=== PATIENT | female | born 1960 | race Caucasian/White ===

== ENCOUNTER 2021-12-11 14:28 | Emergency (ER) | payer BC ==
[2021-12-11] MEDS ORDERED: Ibuprofen 400 MG Tab PO ONE (15:12)
[2021-12-11] MEDS ORDERED: Propofol 200 MG/20 ML SDV IVPUSH ONE (16:05)
[2021-12-11] MEDS ORDERED: Metoclopramide 10 MG/2 ML SDV IVPUSH ONE (16:06)
[2021-12-11] MEDS ORDERED: fentaNYL 100 MCG/2 ML SDV IVPUSH ONE (16:06)
[2021-12-11 18:49] VITALS: BP 114/63; PULSE 82
== END 2021-12-11 17:15 | disposition home or self-care (01) ==
LOC: JD.ED 14:28
DX: S82.852A Displaced trimalleolar fracture of left lower leg, initial encounter for closed fracture (principal); S52.572A Other intraarticular fracture of lower end of left radius, initial encounter for closed fracture; S52.612A Displaced fracture of left ulna styloid process, initial encounter for closed fracture; E10.9 Type 1 diabetes mellitus without complications; Z88.1 Allergy status to other antibiotic agents; W00.0XXA Fall on same level due to ice and snow, initial encounter; Y93.01 Activity, walking, marching and hiking; Y92.22 Religious institution as the place of occurrence of the external cause
CPT/HCPCS: 27818; 73110; 73600; 73610; 82947; 96374; 96375; 99152; 99283; A9270; J2704; J2765; J3010; 29105; 99151; 99284

== ENCOUNTER → 2021-12-21 | Day surgery (SDC) | payer BC ==
[~2021-12-21] MED LIST: Acetaminophen/HYDROcodone 325-5 MG Tab PO PRN; Bupivacaine 0.25% 10 ML SDV ONE; Bupivacaine 0.5% 30 ML SDV ONE; Dexamethasone 4 MG/ML 5 ML MDV ONE; Dexmedetomidine 200 MCG/2 ML SDV ONE; HYDROmorphone 0.5 MG/0.5 ML Syringe IVPUSH PRN; Lactated Ringers 1,000 ML IV SCH; Lidocaine 1%/Sod Bicarbonate in NS 8.4% 1 ML Syringe IDERM PRN; Lidocaine 2% with EPINEPHrine 1:200,000 20 ML SDV ONE; Midazolam 1 MG/ML 2 ML SDV ONE; Ondansetron 4 MG/2 ML SDV ONE; Propofol 200 MG/20 ML SDV ONE; Ropivacaine 0.5% 5 MG/ML 30 ML SDV ONE; Scopolamine 1.5 MG Transdermal Patch TOP ONE; Sodium Chloride 0.9% 10 ML Syringe FLUSH PRN; Sodium Chloride 0.9% 10 ML Syringe FLUSH SCH; ceFAZolin 1 GM Vial ONE; fentaNYL 100 MCG/2 ML SDV IVPUSH PRN; fentaNYL 100 MCG/2 ML SDV ONE
[2021-12-21 15:37] VITALS: BP 116/49; PULSE 68
== END | disposition home or self-care (01) ==
LOC: JD.SDS 07:24
PROVIDERS: ATTEND Orthopaedic Surgery
DX: S82.842A Displaced bimalleolar fracture of left lower leg, initial encounter for closed fracture (principal); S52.502A Unspecified fracture of the lower end of left radius, initial encounter for closed fracture; F41.9 Anxiety disorder, unspecified; F32.A Depression, unspecified; E10.9 Type 1 diabetes mellitus without complications; Z98.890 Other specified postprocedural states; Z88.8 Allergy status to other drugs, medicaments and biological substances; Z79.899 Other long term (current) drug therapy
CPT/HCPCS: 25605; 27814; 76000; 82947; A9270; C1713; C1776; J0690; J1100; J2250; J2405; J2704; J2795; J3010; J3490; J7120; 01480; 64445; 76942